=== PATIENT | male | born 1990 | race Caucasian/White ===

== ENCOUNTER 2017-10-11 14:52 | Emergency (ER) | payer MEDICAID ==
[~2017-10-11] VITALS: Ht 157.5 cm; Wt 53.1 kg
[2017-10-11 16:22] VITALS: Ht 157.5 cm; Wt 53.1 kg
[2017-10-11 19:32] VITALS: BP 137/73
== END 2017-10-11 19:32 | disposition home or self-care (01) ==
LOC: ED 14:52
DX: S90.861A Insect bite (nonvenomous), right foot, initial encounter (principal); L03.115 Cellulitis of right lower limb; F79 Unspecified intellectual disabilities; W57.XXXA Bitten or stung by nonvenomous insect and other nonvenomous arthropods, initial encounter; Y93.89 Activity, other specified; Y92.89 Other specified places as the place of occurrence of the external cause; Y99.8 Other external cause status
CPT/HCPCS: J0690